=== PATIENT | female | born 1965 | race Caucasian/White ===

== ENCOUNTER 2019-10-05 20:58 | Emergency (ER) | payer BC, MEDICAID ==
--- NOTE | 2019-10-05 21:21 | EDM.PDOC ---
ED HPI GENERAL MEDICAL PROBLEM - General Chief Complaint: Chest Pain Stated Complaint: LIGHT HEADED, DIZZY Time Seen by Provider: 10/05/19 21:30 Source of Information: Reports: Patient History Limitations: Reports: No Limitations - History of Present Illness INITIAL COMMENTS - FREE TEXT/NARRATIVE: presents with retrosternal chest pain , pressure since about 4pm, states developed after she was mowing the lawn , persisted , no prior history of such pain , became diaphoretic and warm , and short of breath at rest pt has diabetes on metformin, is obese and smokes no prior cardiac history no history of stress test mother from CHF at 85 yo Onset: Today, Gradual Onset Date: 10/05/19 Onset Time: 16:00 Duration: Getting Worse Location: Reports: Chest Quality: Reports: Pressure, Other (tightness in chest) Severity: Moderate Improves with: Reports: None Worsens with: Reports: None Context: Reports: Activity (was mowing lwan when pain started) Associated Symptoms: Reports: Diaphoresis, Shortness of Breath, Weakness. Denies: Confusion, Cough, Fever/Chills, Nausea/Vomiting - Related Data Allergies Allergy/AdvReac Type Severity Reaction Status Date / Time No Known Allergies Allergy Verified 10/05/19 21:48 Home Meds: Home Meds Losartan [Cozaar] 100 mg PO DAILY 10/05/19 [History] Simvastatin 20 mg PO BEDTIME 10/05/19 [History] glipiZIDE [Glucotrol] 10 mg PO DAILY 10/05/19 [History] hydroCHLOROthiazide [Hydrochlorothiazide] 25 mg PO DAILY 10/05/19 [History] metFORMIN [Glucophage] 1,000 mg PO BIDMEALS 10/05/19 [History] Past Medical History Cardiovascular History: Reports: High Cholesterol, Hypertension Endocrine/Metabolic History: Reports: Diabetes, Type II ED ROS GENERAL - Review of Systems Review Of Systems: See Below Constitutional: Reports: Diaphoresis. Denies: Fever, Chills, Malaise, Weakness HEENT: Reports: No Symptoms Respiratory: Reports: Shortness of Breath Cardiovascular: Reports: Chest Pain, Dyspnea on Exertion, Lightheadedness Endocrine: Reports: Fatigue, High Glucose GI/Abdominal: Reports: No Symptoms : Reports: No Symptoms Musculoskeletal: Reports: No Symptoms Skin: Reports: No Symptoms Neurological: Reports: Dizziness Psychiatric: Reports: No Symptoms Hematologic/Lymphatic: Reports: No Symptoms ED EXAM, GENERAL - Physical Exam Exam: See Below Exam Limited By: No Limitations General Appearance: Alert, WD/WN, No Apparent Distress, Anxious, Obese Eye Exam: Bilateral Eye: Abnormal EOM Ears: Normal External Exam Ear Exam: Bilateral Ear: TM normal Throat/Mouth: Normal Oropharynx, No Airway Compromise Head: Atraumatic, Normocephalic Neck: Supple, Non-Tender Respiratory/Chest: Lungs Clear, Normal Breath Sounds Cardiovascular: Regular Rate, Rhythm, No Edema, No Murmur Peripheral Pulses: 2+: Dorsalis Pedis (L), Dorsalis Pedis (R) GI/Abdominal: Soft, Non-Tender Back Exam: Normal Inspection Extremities: Normal Range of Motion Neurological: Alert, Oriented, CN II-XII Intact EKG INTERPRETATION EKG Date: 10/05/19 Time: 21:15 Rhythm: NSR P-Wave: Present ST-T: Elevated Comparison: NA - No Prior EKG EKG Interpretation Comments: STEMI Course - Vital Signs Last Recorded V/S: Last Vital Signs Temp Pulse Resp BP 114/61 10/05/19 21:30 Pulse Ox - Orders/Labs/Meds Orders: Active Orders 24 hr Category Date Time Status EKG Documentation Completion [RC] ASDIRECTED Care 10/05/19 21:19 Active EKG Documentation Completion [RC] ASDIRECTED Care 10/05/19 22:05 Ordered Heparin 25,000 Units @ 20MLS/HR Med 10/05/19 21:50 Ordered Heparin Sodium/0.45% NaCl [Heparin 25,000 Units in 1/2 NS 500 ML] 500 ml IV ASDIRECTED Nitroglycerin 25 MG in D5W @ 10 MCG/MIN(250ml) Premix Med 10/05/19 22:30 Ordered Nitroglycerin/D5W [Nitroglycerin 25 MG/D5W 250 ML] 25 mg in 250 ml IV TITRATE Nitroglycerin [Nitrostat] Med 10/05/19 21:27 Active 0.4 mg SL Q5M PRN Sodium Chloride 0.9% [Normal Saline] 1,000 ml Med 10/05/19 22:45 Ordered IV ASDIRECTED EKG 12 Lead [EK] Routine Ther 10/05/19 21:19 Ordered EKG 12 Lead [EK] Routine Ther 10/05/19 22:04 Ordered Medication Orders Heparin Sodium/Sodium Chloride (Heparin 25,000 Units In 1/2 Ns 500 Ml) 500 mls @ 20 mls/hr IV ASDIRECTED CARLA Last Admin: 10/05/19 22:19 Dose: 20 mls/hr Nitroglycerin/Dextrose (Nitroglycerin 25 Mg/D5w 250 Ml) 25 mg in 250 mls @ 6 mls/hr IV TITRATE CARLA; Protocol Sodium Chloride (Normal Saline) 1,000 mls @ 250 mls/hr IV ASDIRECTED CARLA Nitroglycerin (Nitrostat) 0.4 mg SL Q5M PRN PRN Reason: Chest Pain Last Admin: 10/05/19 21:30 Dose: 0.4 mg Labs: Laboratory Tests 10/05/19 10/05/19 10/05/19 Range/Units 21:30 21:30 21:30 WBC 18.5 H (4.5-12.0) X10-3/uL RBC 5.34 H (3.23-5.20) x10(6)uL Hgb 15.8 H (11.5-15.5) g/dL Hct 45.6 (30.0-51.3) % MCV 85.4 (80-96) fL MCH 29.5 (27.7-33.6) pg MCHC 34.5 (32.2-35.4) g/dL RDW 12.5 (11.5-15.5) % Plt Count 236 (125-369) X10(3)uL MPV 8.3 (7.4-10.4) fL Add Manual Diff Yes Neutrophils % (Manual) 64 (46-82) % Band Neutrophils % 5 (0-6) % Lymphocytes % (Manual) 31 (13-37) % Sodium 136 (135-145) mmol/L Potassium 3.2 L (3.5-5.3) mmol/L Chloride 98 L (100-110) mmol/L Carbon Dioxide 25 (21-32) mmol/L BUN 10 (7-18) mg/dL Creatinine 0.8 (0.55-1.02) mg/dL Est Cr Clr Drug Dosing TNP Estimated GFR (MDRD) > 60 (>60) BUN/Creatinine Ratio 12.5 (9-20) Glucose 313 H (80-116) mg/dL Calcium 9.3 (8.6-10.2) mg/dL Magnesium 1.3 L (1.8-2.5) mg/dL Troponin I 38.8 (4.0-60.3) pg/mL NT-Pro-B Natriuret Pep 85 (<=125) pg/mL Meds: Medications Generic Name Dose Route Start Last Admin Trade Name Freq PRN Reason Stop Dose Admin Heparin Sodium/Sodium Chloride 500 mls @ 20 mls/hr 10/05/19 21:50 10/05/19 22 :19 Heparin 25,000 Units In 1/2 Ns 500 Ml IV 20 mls/hr ASDIRECTED CARLA Administration Nitroglycerin/Dextrose 25 mg in 250 mls @ 6 mls/hr 10/05/19 22:30 Nitroglycerin 25 Mg/D5w 250 Ml IV TITRATE CARLA Protocol 10 MCG/MIN Sodium Chloride 1,000 mls @ 250 mls/hr 10/05/19 22:45 Normal Saline IV ASDIRECTED CARLA Nitroglycerin 0.4 mg 10/05/19 21:27 10/05/19 21:30 Nitrostat SL 0.4 mg Q5M PRN Administration Chest Pain Discontinued Medications Generic Name Dose Route Start Last Admin Trade Name Freq PRN Reason Stop Dose Admin Aspirin 324 mg 10/05/19 21:27 10/05/19 21:10 Aspirin PO 10/05/19 21:28 243 mg ONETIME ONE Administration Heparin Sodium (Porcine) 5,000 units 10/05/19 22:03 10/05/19 22:17 Heparin Sodium IVPUSH 10/05/19 22:04 5,000 units ONETIME ONE Administration Sodium Chloride 1,000 mls @ 999 mls/hr 10/05/19 21:28 10/05/19 21:25 Normal Saline IV 10/05/19 22:28 999 mls/hr .BOLUS ONE Administration Magnesium Oxide 400 mg 10/05/19 21:52 10/05/19 21:55 Magnesium Oxide PO 10/05/19 21:53 400 mg ONETIME ONE Administration Morphine Sulfate 4 mg 10/05/19 21:36 10/05/19 21:45 Morphine IVPUSH 10/05/19 21:37 4 mg ONETIME ONE Administration Potassium Chloride 40 meq 10/05/19 21:51 10/05/19 21:55 Klor-Con M20 PO 10/05/19 21:52 40 meq ONETIME ONE Administration Ticagrelor 180 mg 10/05/19 22:35 Brilinta PO 10/05/19 22:36 ONETIME ONE - Re-Assessments/Exams Free Text/Narrative Re-Assessment/Exam: 10/05/19 22:48 Ekg done on arrival showed St elevation in lateral leads pt given ASpirin x4 on arrival , then NTG sublingual x2 , still had chest pain ( from initial 7 to 07/25) Iv Morphine given 4mg , still had pain Iv heparin started Call made to [facility], there was a delay in response EKG repeated, improved but still had changes in the same leads Air flight intiated discussed with [employer] , requested transfer pt given Brilinta BP did remain low in the 110's systolic, IV Nitro started , pt still had pain , though improved Departure - Departure Time of Disposition: 10:50 Disposition: DC/Tfer to Acute Hospital 02 Reason for Transfer *Q: Primary PCI Indicated Clinical Impression: Chest pain in adult, Hypokalemia, Hypomagnesemia, Type 2 diabetes mellitus, STEMI (ST elevation myocardial infarction) Referrals: PCP,None [Primary Care Provider] - Forms: ED Department Discharge Sepsis Event Note - Focused Exam Vital Signs: Vital Signs BP 10/05/19 21:30 114/61 10/05/19 21:22 112/69 Date Exam was Performed: 10/05/19 Time Exam was Performed: 22:58 - Problem List & Annotations (1) STEMI (ST elevation myocardial infarction) SNOMED Code(s): 57587667 Code(s): I21.3 - ST ELEVATION (STEMI) [facility] Status: Acute Priority: High Current Visit: Yes - My Orders Last 24 Hours: My Active Orders 10/05/19 21:19 EKG Documentation Completion [RC] ASDIRECTED EKG 12 Lead [EK] Routine 10/05/19 21:27 Nitroglycerin [Nitrostat] 0.4 mg SL Q5M PRN 10/05/19 21:50 Heparin 25,000 Units @ 20MLS/HR Heparin Sodium/0.45% NaCl [Heparin 25,000 Units in 1/2 NS 500 ML] 500 ml IV ASDIRECTED 10/05/19 22:04 EKG 12 Lead [EK] Routine 10/05/19 22:05 EKG Documentation Completion [RC] ASDIRECTED 10/05/19 22:30 Nitroglycerin 25 MG in D5W @ 10 MCG/MIN(250ml) Premix Nitroglycerin/D5W [ Nitroglycerin 25 MG/D5W 250 ML] 25 mg in 250 ml IV TITRATE 10/05/19 22:45 Sodium Chloride 0.9% [Normal Saline] 1,000 ml IV ASDIRECTED - Assessment/Plan Last 24 Hours: My Active Orders 10/05/19 21:19 EKG Documentation Completion [RC] ASDIRECTED EKG 12 Lead [EK] Routine 10/05/19 21:27 Nitroglycerin [Nitrostat] 0.4 mg SL Q5M PRN 10/05/19 21:50 Heparin 25,000 Units @ 20MLS/HR Heparin Sodium/0.45% NaCl [Heparin 25,000 Units in 1/2 NS 500 ML] 500 ml IV ASDIRECTED 10/05/19 22:04 EKG 12 Lead [EK] Routine 10/05/19 22:05 EKG Documentation Completion [RC] ASDIRECTED 10/05/19 22:30 Nitroglycerin 25 MG in D5W @ 10 MCG/MIN(250ml) Premix Nitroglycerin/D5W [ Nitroglycerin 25 MG/D5W 250 ML] 25 mg in 250 ml IV TITRATE 10/05/19 22:45 Sodium Chloride 0.9% [Normal Saline] 1,000 ml IV ASDIRECTED
[2019-10-05] MEDS: Nitroglycerin 0.4 MG Tab.SL SL PRN ×2 (21:22→21:30)
[2019-10-05] MEDS ORDERED: Aspirin 81 MG Tab.Chew PO ONE (21:27)
[2019-10-05] MEDS ORDERED: Sodium Chloride 0.9% 1,000 ML IV ONE (21:28)
[2019-10-05] MEDS ORDERED: Morphine 2 MG/ML Syringe IVPUSH ONE (21:36)
[2019-10-05] MEDS ORDERED: Heparin Sodium/0.45% NaCl 500 ML IV SCH (21:50)
[2019-10-05] MEDS ORDERED: Potassium Chloride 20 MEQ Tab.ER PO ONE (21:51)
[2019-10-05] MEDS ORDERED: Magnesium Oxide 400 MG Tab PO ONE (21:52)
[2019-10-05] MEDS ORDERED: Heparin Sodium 5,000 Units/ML Vial IVPUSH ONE (22:03)
[2019-10-05] MEDS ORDERED: Nitroglycerin/D5W 25 MG/250 ML BOTTLE IV SCH (22:30)
[2019-10-05] MEDS ORDERED: Ticagrelor 90 MG Tab PO ONE (22:35)
[2019-10-05] MEDS ORDERED: Sodium Chloride 0.9% 1,000 ML IV SCH (22:45)
== END 2019-10-05 23:12 ==
LOC: FB.ED 20:58
DX: I21.3 ST elevation (STEMI) myocardial infarction of unspecified site (principal); E87.6 Hypokalemia; E83.42 Hypomagnesemia; E11.9 Type 2 diabetes mellitus without complications; E78.00 Pure hypercholesterolemia, unspecified; I10 Essential (primary) hypertension; Z79.84 Long term (current) use of oral hypoglycemic drugs; Z79.899 Other long term (current) drug therapy
CPT/HCPCS: 36415; 51702; 80048; 81001; 82962; 83735; 83880; 84484; 85025; 93005; 96361; 96365; 96368; 96375; 96376; 99285-25; A9270-GY; J1644; J2270; J3490; J7030

== ENCOUNTER 2021-02-20 19:52 | Emergency (ER) | payer MEDICAID ==
--- NOTE | 2021-02-20 20:16 | EDM.PDOC ---
ED HPI GENERAL MEDICAL PROBLEM - General Chief Complaint: Cardiovascular Problem Stated Complaint: CHEST PAINS Time Seen by Provider: 02/20/21 20:15 Source of Information: Reports: Patient, Old Records, RN History Limitations: Reports: No Limitations - History of Present Illness INITIAL COMMENTS - FREE TEXT/NARRATIVE: 55 yo female presents with epigastric pain. Was worried that she was having heart pain since she recently was treated for an inferior MS. Claims all she's eaten today was a bagel for breakfast. Her pain is pretty much gone here in the ER. When it was at its worst she had associated mild nausea. Onset: Today, Gradual Onset Date: 02/20/21 Duration: Hour(s):, Resolved Prior to Arrival Location: Reports: Abdomen (epigastrium) Quality: Reports: Ache, Pressure Severity: Mild Improves with: Reports: Other (? time) Worsens with: Reports: Other (? not eating) Context: Reports: Other (See HPI) Associated Symptoms: Reports: Nausea/Vomiting (no vomiting, mild nausea). Denies: Chest Pain, Diaphoresis, Fever/Chills Treatments [employer]: Reports: Other (see below) (none) - Related Data Allergies Allergy/AdvReac Type Severity Reaction Status Date / Time No Known Allergies Allergy Verified 10/05/19 21:48 Home Meds: Home Meds Losartan [Cozaar] 100 mg PO DAILY 10/05/19 [History] Simvastatin 20 mg PO BEDTIME 10/05/19 [History] glipiZIDE [Glucotrol] 10 mg PO DAILY 10/05/19 [History] hydroCHLOROthiazide [Hydrochlorothiazide] 25 mg PO DAILY 10/05/19 [History] metFORMIN [Glucophage] 1,000 mg PO BIDMEALS 10/05/19 [History] Past Medical History Cardiovascular History: Reports: High Cholesterol, Hypertension Endocrine/Metabolic History: Reports: Diabetes, Type II Social & Family History - Family History Cardiac: Reports: Heart Failure - Caffeine Use Caffeine Use: Reports: Coffee ED ROS GENERAL - Review of Systems Review Of Systems: See Below Constitutional: Reports: No Symptoms HEENT: Reports: No Symptoms Respiratory: Reports: No Symptoms Cardiovascular: Reports: No Symptoms GI/Abdominal: Reports: Abdominal Pain (epigastric), Nausea (mild). Denies: Black Stool, Bloody Stool, Diarrhea, Vomiting : Reports: No Symptoms Musculoskeletal: Reports: No Symptoms Skin: Reports: No Symptoms Neurological: Reports: No Symptoms ED EXAM, GENERAL - Physical Exam Exam: See Below Exam Limited By: No Limitations General Appearance: Alert, WD/WN, No Apparent Distress Eye Exam: Bilateral Eye: Normal Inspection Ears: Normal External Exam, Normal Canal, Hearing Grossly Normal Ear Exam: Bilateral Ear: Auricle Normal, Canal Normal Nose: Normal Inspection, No Blood Throat/Mouth: Normal Inspection, Normal Lips, Normal Oropharynx, Normal Voice, No Airway Compromise Head: Atraumatic, Normocephalic Neck: Normal Inspection Respiratory/Chest: No Respiratory Distress, Lungs Clear, Normal Breath Sounds, No Accessory Muscle Use, Chest Non-Tender Cardiovascular: Regular Rate, Rhythm, No Edema GI/Abdominal: Normal Bowel Sounds, Soft, Non-Tender, No Distention. No: Distended, Guarding, Rigid, Rebound, Tender Back Exam: Normal Inspection. No: CVA Tenderness (R), CVA Tenderness (L) Extremities: Normal Inspection, Normal Range of Motion, Non-Tender, No Pedal Edema Neurological: Alert, Oriented, CN II-XII Intact, Normal Cognition, No Motor/Sensory Deficits Psychiatric: Normal Affect, Normal Mood Skin Exam: Warm, Dry, Intact, Normal Color, No Rash #1 Interpretation EKG Date: 02/20/21 Time: 20:00 Rhythm: NSR Rate (Beats/Min): 87 [place]: Normal P-Wave: Present QRS: Normal ST-T: Normal QT: Normal Comparison: Change From Previous EKG (Resolved ST elevation in inferior leads.) Course - Orders/Labs/Meds Orders: Active Orders 24 hr Category Date Time Status Cardiac Monitoring [RC] .As Directed Care 02/20/21 19:57 Active EKG Documentation Completion [RC] ASDIRECTED Care 02/20/21 19:56 Active EKG 12 Lead [EK] Routine Ther 02/20/21 19:56 Ordered Departure - Departure Time of Disposition: 21:00 Disposition: Home, Self-Care 01 Condition: Good Clinical Impression: Gastritis Qualifiers: Gastritis type: unspecified gastritis Chronicity: acute Gastritis bleeding: without bleeding Qualified Code(s): K29.00 - Acute gastritis without bleeding Instructions: Gastritis, Adult, [id number] Referrals: PCP,None [Primary Care Provider] - Forms: ED Department Discharge Additional Instructions: Make sure you are taking your aspirin with a full meal, doesn't matter which meal. Try and eat at least a light meal 3 times a day. Recheck if worse. - My Orders Last 24 Hours: My Active Orders 02/20/21 19:56 EKG Documentation Completion [RC] ASDIRECTED EKG 12 Lead [EK] Routine 02/20/21 19:57 Cardiac Monitoring [RC] .As Directed - Assessment/Plan Last 24 Hours: My Active Orders 02/20/21 19:56 EKG Documentation Completion [RC] ASDIRECTED EKG 12 Lead [EK] Routine 02/20/21 19:57 Cardiac Monitoring [RC] .As Directed
== END 2021-02-20 21:20 | disposition home or self-care (01) ==
LOC: FB.ED 19:52
DX: K59.00 Constipation, unspecified (principal); E78.00 Pure hypercholesterolemia, unspecified; I10 Essential (primary) hypertension; E11.9 Type 2 diabetes mellitus without complications; Z79.899 Other long term (current) drug therapy; Z79.84 Long term (current) use of oral hypoglycemic drugs
CPT/HCPCS: 93005; 99284-25